=== PATIENT | female | born 1995 | race Caucasian/White ===

== ENCOUNTER → 2018-05-07 15:37 | Outpatient (CLI) | payer MEDICAID, SELFPAY ==
--- NOTE | 2018-05-07 15:43 | XR_ITS ---
XR foot LT min 3V HISTORY: Pain following injury ITS.REASON: LEFT FOOT SPRAIN ORDERING PHYSICIAN: Maral Aguilar MD PATIENT AGE: 23 years COMPARISON: None FINDINGS: No fracture or dislocation. No lytic or blastic change. There is normal mineralization.. The joint spaces are well-preserved. No significant degenerative/arthritic changes. No erosive changes evident. IMPRESSION: Negative, no acute finding
--- NOTE | 2018-05-07 15:43 | XR_ITS ---
XR ankle LT min 3V HISTORY: Pain following injury ITS.REASON: LEFT FOOT SPRAIN ORDERING PHYSICIAN: Maral Aguilar MD PATIENT AGE: 23 years Comparison: None FINDINGS: No fracture or dislocation. No lytic or blastic change. There is normal mineralization.. The joint spaces are well-preserved. No significant degenerative/arthritic changes. No erosive changes evident. IMPRESSION: Negative ankle, no acute finding
== END ==
PROVIDERS: PCP Family Medicine; Visit Provider Family Medicine
DX: S93.602A Unspecified sprain of left foot, initial encounter (principal)
CPT/HCPCS: 73610; 73630

== ENCOUNTER → 2018-11-07 15:11 | Outpatient (CLI) | payer MEDICAID, SELFPAY ==
--- NOTE | 2018-11-07 15:14 | US_ITS ---
US soft tissue head and neck CLINICAL INDICATION: ITS.REASON: LEFT CERVICAL LYMPHADENOPATHY ORDERING PHYSICIAN: Kolby Bardales MD PATIENT AGE: 23 years Comparison: None FINDINGS: Ultrasound is performed of the neck. No mass abnormal fluid collection or enlarged lymph nodes evident. IMPRESSION: Unremarkable neck ultrasound. Consider CT with contrast if symptoms persist
== END ==
PROVIDERS: PCP Family Medicine; Visit Provider Family Medicine
DX: R59.0 Localized enlarged lymph nodes (principal)
CPT/HCPCS: 76536

== ENCOUNTER → 2018-12-13 09:12 | Outpatient (CLI) | payer MEDICAID, SELFPAY ==
--- NOTE | 2018-12-13 09:13 | US_ITS ---
PROCEDURE: US ABDOMEN LIMITED CLINICAL INDICATION: ABD PAIN, DIAHHREA, VOMITING COMPARISON: No exams were available for comparison FINDINGS: PANCREAS: Unremarkable. No obvious mass or abnormal fluid collection. No ductal dilatation LIVER: There is increased echogenicity of the liver consistent with fatty liver. No focal liver lesions or biliary dilatation evident. RIGHT KIDNEY: Unremarkable. Normal size and echogenicity. No hydronephrosis GALLBLADDER: No gallstones, gallbladder wall thickening, pericholecystic fluid, or biliary dilatation. IMPRESSION: Fatty liver otherwise negative Dictated by: Konrad Strickland MD 12/13/2018 13:08 Signed by: <Electronically signed by Konrad Strickland MD in [place]> 12/13/2018 13:08
== END ==
PROVIDERS: PCP Family Medicine; Visit Provider Family Medicine
DX: R10.84 Generalized abdominal pain (principal); R19.7 Diarrhea, unspecified; R11.10 Vomiting, unspecified
CPT/HCPCS: 76705

== ENCOUNTER → 2019-01-20 09:01 | Outpatient (CLI) | payer MEDICAID, SELFPAY ==
--- NOTE | 2019-01-20 10:18 | HMH.ITSHM ---
Current Home Medications as stated by this patient Shelly Silva or applications sales representative. []GABAPENTIN GEODON LEMECTIL BUSPURONE EFFEXOR BINZITROPINE TRAZODONE
--- NOTE | 2019-01-20 10:30 | NM_ITS ---
PROCEDURE: NM HEPATOBILIARY W PHARM CLINICAL INDICATION: ABD PAIN, DIARRHEA,VOMITING COMPARISON: US ABDOMEN LIMITED from 12/13/2018 TECHNIQUE: DOSE: 8.56 mCi technetium Choletec. 2.1 mcg of CCK FINDINGS: Homogeneous activity is present within the hepatic parenchyma. Activity is present in the gallbladder by 10 minutes. Activity is present in the small bowel by 15 minutes. The gallbladder ejection fraction is calculated to be 91 percent. CCK-The patient did not report pain or other symptoms during CCK infusion. IMPRESSION: Unremarkable hepatobiliary scan with normal gallbladder ejection fraction Dictated by: Konrad Strickland MD 01/20/2019 20:45 Electronically signed by Konrad Strickland MD in [place] 01/20/2019 20:45
== END ==
PROVIDERS: PCP Family Medicine; Visit Provider Family Medicine
DX: R10.9 Unspecified abdominal pain (principal); R19.7 Diarrhea, unspecified; R11.10 Vomiting, unspecified
CPT/HCPCS: 78227; A9537; J2805

== ENCOUNTER → 2019-04-14 09:13 | Outpatient (POV) | payer OTHER, SELFPAY ==
[2019-04-14 11:27] LABS: Basophils % 0.3 % (0.1-2.0); Eosinophils % 0.1 % (0.1-12.0); Hematocrit 38.6 % (37.0-47.0); Hemoglobin 12.8 g/dL (12.2-16.2); Lymphocytes # 2.4 K/mm3 (0.7-4.5); Lymphocytes % 26.8 % (10-50); Mean Corpuscular HGB Conc 33.2 g/dL (31.8-35.4); Mean Corpuscular Volume 93.3 fl (81-99); Mean Platelet Volume 8.2 fl (7.4-10.4); Monocytes # 0.4 K/mm3 (0.1-1.0); Monocytes % 4.5 % (1.7-9.3); Neutrophils # 6.2 K/mm3 (1.8-7.8); Neutrophils % 68.3 % (37.0-80.0); Platelet Count 275 K/mm3 (142-424); Red Blood Count 4.14 M/mm3 (4.20-5.40)
[2019-04-14 12:04] LABS: Erythrocyte Sedimentation Rate 40 mm/hr (0-20)
[2019-04-14 13:05] LABS: Alanine Aminotransferase 36 U/L (12-78); Albumin Level 3.7 gm/dL (3.4-5.0); Albumin/Globulin Ratio 1.1 (1.1-1.8); Alkaline Phosphatase 68 U/L (46-116); Anion Gap 16.5 mEq/L (5-15); Aspartate Amino Transferase 22 U/L (15-37); Bilirubin,Total 0.2 mg/dL (0.2-1.0); Blood Urea Nitrogen 8 mg/dL (7-18); C-Reactive Protein 1.5 mg/dL (0.0-0.9); Calcium 8.9 mg/dL (8.5-10.1); Carbon Dioxide 24 mmol/L (21.0-32.0); Chloride 105 mmol/L (98-107); Creatinine,Serum 0.86 mg/dL (0.55-1.02); Estimated Glomerular Filt Rate 80 ml/min (>60); GFR (African American) 97 ML/MIN (>60); Globulin 3.3 gm/dl (1.3-3.2); Glucose 107 mg/dL (74-106); Potassium 4.5 mmoL/L (3.5-5.1); Sodium 141 mmol/L (136-145); Thyroid Stimulating Hormone 1.44 uIU/ml (0.358-3.740)
[2019-04-15 16:46] LABS: Deamidated Gliadin Abs, IgA 28 units (0-19); Deamidated Gliadin Abs, IgG 4 units (0-19); Tissue Transglutaminase IgA Ab <2 U/mL (0-3); Tissue Transglutaminase IgG Ab 16 U/mL (0-5)
[2019-04-15 16:47] LABS: Endomysial IgA Antibody Negative (Negative)
[2019-04-16 13:18] LABS: Reticulin IgA Antibody Negative titer (Neg:<1:2.5)
[2019-04-17 20:56] LABS: Saccharomyces cerevisiae, IgA 21.1 Units (0.0-24.9); Saccharomyces cerevisiae, IgG 45.8 Units (0.0-24.9)
== END ==
PROVIDERS: Visit Provider Nurse Practitioner Family
DX: R14.0 Abdominal distension (gaseous) (principal); R19.4 Change in bowel habit; K59.00 Constipation, unspecified; R11.2 Nausea with vomiting, unspecified; R10.84 Generalized abdominal pain; R19.7 Diarrhea, unspecified
CPT/HCPCS: 36415; 80053; 83516; 84443; 85025; 85651; 86140; 86255; 86256; 86671

== ENCOUNTER → 2020-01-26 12:45 | Outpatient (CLI) | payer OTHER, SELFPAY ==
[2020-01-26 13:27] LABS: Basophils # 0.1 K/mm3 (0-0.2); Basophils % 0.5 % (0.1-2.0); Eosinophils # 0.3 K/mm3 (0.0-0.4); Eosinophils % 2.8 % (0.1-12.0); Hematocrit 42.4 % (37.0-47.0); Hemoglobin 13.4 g/dL (12.2-16.2); Lymphocytes # 3.2 K/mm3 (0.7-4.5); Lymphocytes % 27.4 % (10-50); Mean Corpuscular HGB Conc 31.6 g/dL (31.8-35.4); Mean Corpuscular Hemoglobin 30.4 pg (27.0-31.2); Mean Corpuscular Volume 96.3 fl (81-99); Monocytes # 0.5 K/mm3 (0.1-1.0); Monocytes % 4.4 % (1.7-9.3); Neutrophils # 7.6 K/mm3 (1.8-7.8); Platelet Count 301 K/mm3 (142-424); Red Cell Distribution Width 14.3 % (11.5-17.5); White Blood Count 11.7 K/mm3 (4.8-10.8)
[2020-01-26 13:35] LABS: Strep Scrn Group A (Rapid) Negative (Negative)
[2020-01-27 08:29] LABS: Covid-19 Nasal PCR Sendout Lex NOT DETECTED
== END ==
PROVIDERS: PCP Family Medicine; Visit Provider Family Medicine
DX: Z03.818 Encounter for observation for suspected exposure to other biological agents ruled out (principal)
CPT/HCPCS: 85025; 87275; 87276; 87430; U0004

== ENCOUNTER → 2021-12-21 06:44 | Outpatient (CLI) | payer OTHER, SELFPAY | PROVIDERS: PCP Family Medicine; Visit Provider Family Medicine | DX: R30.0 Dysuria (principal); B96.89 Other specified bacterial agents as the cause of diseases classified elsewhere | CPT/HCPCS: 87086; 87088 ==

== ENCOUNTER → 2022-05-29 15:40 | Outpatient (CLI) | payer OTHER, SELFPAY ==
[2022-05-29 19:32] LABS: Adenovirus,PCR Not Detected (NotDetected); Chlamydophila Pneumoniae, PCR Not Detected (NotDetected); Coronavirus 19, PCR Not Detected (NotDetected); Coronavirus 229E Not Detected (NotDetected); Coronavirus NL63 Not Detected (NotDetected); Coronavirus OC43 Not Detected (NotDetected); Coronovirus HKU1,PCR Not Detected (NotDetected); Human Metapneumovirus Not Detected (NotDetected); Influenza A, PCR Not Detected (NotDetected); Influenza AH1, 2009 Not Detected (NotDetected); Influenza AH1, PCR Not Detected (NotDetected); Influenza AH3,PCR Not Detected (NotDetected); Influenza B, PCR Not Detected (NotDetected); Mycoplasma Pneumoniae, PCR Not Detected (NotDetected); Parainfluenza 1, PCR Not Detected (NotDetected); Parainfluenza 2, PCR Not Detected (NotDetected); Parainfluenza 3, PCR Not Detected (NotDetected); Parainfluenza 4, PCR Not Detected (NotDetected); Respiratory Syncytial Virus Not Detected (NotDetected); Rhinovirus/Enterovirus Not Detected (NotDetected)
[2022-05-29 19:41] LABS: Basophils # 0.1 K/mm3 (0-0.2); Basophils % 1.3 % (0.1-2.0); Eosinophils # 0.2 K/mm3 (0.0-0.4); Eosinophils % 2.2 % (0.1-12.0); Hematocrit 42.7 % (37.0-47.0); Hemoglobin 13.8 g/dL (12.2-16.2); Lymphocytes # 3.2 K/mm3 (0.7-4.5); Lymphocytes % 30.4 % (10-50); Mean Corpuscular HGB Conc 32.3 g/dL (31.8-35.4); Mean Corpuscular Hemoglobin 28.6 pg (27.0-31.2); Mean Corpuscular Volume 88.5 fl (81-99); Monocytes # 0.5 K/mm3 (0.1-1.0); Monocytes % 4.6 % (1.7-9.3); Neutrophils # 6.4 K/mm3 (1.8-7.8); Neutrophils % 61.6 % (37.0-80.0); Platelet Count 304 K/mm3 (142-424); Red Blood Count 4.82 M/mm3 (4.20-5.40); Red Cell Distribution Width 14.4 % (11.5-17.5); White Blood Count 10.4 K/mm3 (4.8-10.8)
[2022-05-29 19:42] LABS: Chloride 110 mmol/L (98-107); Sodium 143 mmol/L (136-145)
[2022-05-29 19:43] LABS: Potassium 4.2 mmoL/L (3.5-5.1)
[2022-05-29 19:45] LABS: Alanine Aminotransferase 34 U/L (12-78); Alkaline Phosphatase 75 U/L (38-126); Aspartate Amino Transferase 35 U/L (14-36); Bilirubin,Total 0.3 mg/dl (0.2-1.3); Blood Urea Nitrogen 9 mg/dl (7-17); Estimated Glomerular Filt Rate 99 ml/min (>60); GFR (African American) 120 ML/MIN (>60)
[2022-05-29 19:46] LABS: Albumin Level 4.3 g/dl (3.5-5.0); Albumin/Globulin Ratio 1.3 (1.1-1.8); Anion Gap 13.2 mEq/L (5-15); Calcium 9.5 mg/dl (8.4-10.2); Carbon Dioxide 24 mmol/L (22.0-30.0); Globulin 3.2 g/dL (1.3-3.2); Glucose 136 mg/dl (74-100); Total Protein,Serum 7.5 g/dl (6.3-8.2)
[2022-05-29 21:34] LABS: Bordetella Pertussis Detected (NotDetected)
== END ==
PROVIDERS: PCP Nurse Practitioner; Visit Provider Nurse Practitioner
DX: J02.9 Acute pharyngitis, unspecified (principal); R76.8 Other specified abnormal immunological findings in serum
CPT/HCPCS: 80053; 85025; 87581; 87632; 87798; C9803; U0003; U0005

== ENCOUNTER → 2022-06-07 09:40 | Outpatient (CLI) | payer OTHER, SELFPAY ==
--- NOTE | 2022-06-07 09:41 | CT_ITS ---
FINAL REPORT TECHNIQUE: Thin section axial CT images with coronal and sagittal reformats were performed after the administration of IV contrast. This study was performed with techniques to keep radiation doses as low as reasonably achievable (ALARA). Individualized dose reduction techniques using automated exposure control or adjustment of mA and/or kV according to the patient''s size were employed. CLINICAL HISTORY: right sialadenitis vs lymphadenopathy COMPARISON: None FINDINGS: No significant cervical adenopathy or mass lesion is present . Salivary glands are normal. The parotid glands are unremarkable. Larynx is unremarkable. Thyroid gland is unremarkable. The paranasal sinuses are well aerated. There are few small scattered mediastinal lymph nodes. IMPRESSION: Nonspecific mild mediastinal adenopathy. Reviewed, Interpreted and Dictated by Donn Fischer MD Transcribed by Jillian Florian Authenticated and . [facility]
== END ==
PROVIDERS: PCP Nurse Practitioner; Visit Provider Nurse Practitioner
DX: K11.20 Sialoadenitis, unspecified (principal)
CPT/HCPCS: 70491; Q9967

== ENCOUNTER → 2022-06-19 23:39 | Outpatient (CLI) | payer OTHER, SELFPAY ==
[2022-06-19 19:09] LABS: Basophils # 0.1 K/mm3 (0-0.2); Basophils % 1.1 % (0.1-2.0); Eosinophils # 0.2 K/mm3 (0.0-0.4); Eosinophils % 1.8 % (0.1-12.0); Hematocrit 45.3 % (37.0-47.0); Hemoglobin 14.9 g/dL (12.2-16.2); Lymphocytes # 2.8 K/mm3 (0.7-4.5); Lymphocytes % 27.7 % (10-50); Mean Corpuscular HGB Conc 32.8 g/dL (31.8-35.4); Mean Corpuscular Hemoglobin 29.6 pg (27.0-31.2); Mean Corpuscular Volume 90.3 fl (81-99); Mean Platelet Volume 9.5 fl (7.4-10.4); Monocytes # 0.4 K/mm3 (0.1-1.0); Monocytes % 4.2 % (1.7-9.3); Neutrophils # 6.6 K/mm3 (1.8-7.8); Neutrophils % 65.2 % (37.0-80.0); Platelet Count 354 K/mm3 (142-424); Red Blood Count 5.02 M/mm3 (4.20-5.40); Red Cell Distribution Width 14.2 % (11.5-17.5); White Blood Count 10.1 K/mm3 (4.8-10.8)
== END ==
PROVIDERS: PCP Nurse Practitioner; Visit Provider Nurse Practitioner
DX: J06.9 Acute upper respiratory infection, unspecified (principal)
CPT/HCPCS: 85025

== ENCOUNTER → 2022-08-14 23:21 | Outpatient (CLI) | payer OTHER, SELFPAY ==
[2022-08-14 18:05] LABS: Adenovirus,PCR Not Detected (NotDetected); Bordetella Pertussis Not Detected (NotDetected); Chlamydophila Pneumoniae, PCR Not Detected (NotDetected); Coronavirus 19, PCR Not Detected (NotDetected); Coronavirus 229E Not Detected (NotDetected); Coronavirus NL63 Not Detected (NotDetected); Coronavirus OC43 Not Detected (NotDetected); Coronovirus HKU1,PCR Not Detected (NotDetected); Human Metapneumovirus Not Detected (NotDetected); Influenza A, PCR Not Detected (NotDetected); Influenza AH1, 2009 Not Detected (NotDetected); Influenza AH1, PCR Not Detected (NotDetected); Influenza AH3,PCR Not Detected (NotDetected); Influenza B, PCR Not Detected (NotDetected); Mycoplasma Pneumoniae, PCR Not Detected (NotDetected); Parainfluenza 1, PCR Not Detected (NotDetected); Parainfluenza 2, PCR Not Detected (NotDetected); Parainfluenza 3, PCR Not Detected (NotDetected); Parainfluenza 4, PCR Not Detected (NotDetected); Respiratory Syncytial Virus Not Detected (NotDetected); Rhinovirus/Enterovirus Not Detected (NotDetected)
[2022-08-14 18:15] LABS: Basophils # 0.1 K/mm3 (0-0.2); Basophils % 0.5 % (0.1-2.0); Eosinophils # 0.2 K/mm3 (0.0-0.4); Eosinophils % 1.8 % (0.1-12.0); Hematocrit 43.4 % (37.0-47.0); Hemoglobin 14.2 g/dL (12.2-16.2); Lymphocytes % 29.8 % (10-50); Mean Corpuscular HGB Conc 32.6 g/dL (31.8-35.4); Mean Corpuscular Hemoglobin 28.8 pg (27.0-31.2); Mean Corpuscular Volume 88.5 fl (81-99); Mean Platelet Volume 9.7 fl (7.4-10.4); Monocytes # 0.4 K/mm3 (0.1-1.0); Monocytes % 4.1 % (1.7-9.3); Neutrophils # 6.3 K/mm3 (1.8-7.8); Neutrophils % 63.8 % (37.0-80.0); Platelet Count 251 K/mm3 (142-424); Red Blood Count 4.91 M/mm3 (4.20-5.40); Red Cell Distribution Width 13.8 % (11.5-17.5); White Blood Count 9.9 K/mm3 (4.8-10.8)
== END ==
PROVIDERS: PCP Nurse Practitioner; Visit Provider Nurse Practitioner
DX: J06.9 Acute upper respiratory infection, unspecified (principal); J02.9 Acute pharyngitis, unspecified
CPT/HCPCS: 85025; 87070; 87581; 87632; 87798; C9803; U0003; U0005

== ENCOUNTER → 2022-09-28 09:10 | Outpatient (POV) | payer OTHER, SELFPAY | PROVIDERS: Visit Provider Specialist/Technologist | DX: Z00.00 Encounter for general adult medical examination without abnormal findings (principal) ==

== ENCOUNTER → 2023-03-28 08:40 | Outpatient (CLI) | payer OTHER, SELFPAY | PROVIDERS: PCP Nurse Practitioner; Visit Provider Nurse Practitioner | DX: N10 Acute pyelonephritis (principal) | CPT/HCPCS: 87086 ==

== ENCOUNTER 2023-06-12 19:57 | Outpatient (CLI) | payer OTHER, SELFPAY ==
[2023-06-12 18:14] LABS: Coronavirus 19, PCR Not Detected (NotDetected); Influenza A, PCR Not Detected (NotDetected); Influenza B, PCR Not Detected (NotDetected)
== END 2023-06-12 23:59 ==
LOC: LAB.DROPOF 19:57
PROVIDERS: PCP Nurse Practitioner; Visit Provider Nurse Practitioner
DX: R51.9 Headache, unspecified (principal); H92.09 Otalgia, unspecified ear; R09.82 Postnasal drip; J06.9 Acute upper respiratory infection, unspecified; R05.9 Cough, unspecified
CPT/HCPCS: 87636

== ENCOUNTER 2023-08-06 23:02 | Outpatient (CLI) | payer OTHER, SELFPAY ==
[2023-08-06 18:14] LABS: Basophils # 0.1 K/mm3 (0-0.2); Basophils % 0.8 % (0.1-2.0); Eosinophils # 0.2 K/mm3 (0.0-0.4); Eosinophils % 2.6 % (0.1-12.0); Hematocrit 44.8 % (37.0-47.0); Hemoglobin 14.3 g/dL (12.2-16.2); Lymphocytes # 2.3 K/mm3 (0.7-4.5); Mean Corpuscular HGB Conc 31.8 g/dL (31.8-35.4); Mean Corpuscular Hemoglobin 29.4 pg (27.0-31.2); Mean Corpuscular Volume 92.5 fl (81-99); Mean Platelet Volume 9.8 fl (7.4-10.4); Monocytes # 0.4 K/mm3 (0.1-1.0); Monocytes % 4.8 % (1.7-9.3); Neutrophils # 5.6 K/mm3 (1.8-7.8); Neutrophils % 64.7 % (37.0-80.0); Platelet Count 258 K/mm3 (142-424); Red Blood Count 4.84 M/mm3 (4.20-5.40); Red Cell Distribution Width 14.8 % (11.5-17.5); White Blood Count 8.7 K/mm3 (4.8-10.8)
[2023-08-06 18:45] LABS: Alanine Aminotransferase 41 U/L (12-78); Albumin/Globulin Ratio 1.4 (1.1-1.8); Alkaline Phosphatase 75 U/L (38-126); Anion Gap 12.1 mEq/L (5-15); Aspartate Amino Transferase 41 U/L (14-36); Bilirubin,Total 0.5 mg/dl (0.2-1.3); Blood Urea Nitrogen 10 mg/dl (7-17); Calcium 9.4 mg/dl (8.4-10.2); Carbon Dioxide 22 mmol/L (22.0-30.0); Chloride 110 mmol/L (98-107); Estimated Glomerular Filt Rate 98 ml/min (>60); GFR (African American) 119 ML/MIN (>60); Globulin 2.9 g/dL (1.3-3.2); Glucose 189 mg/dl (74-100); Potassium 4.1 mmoL/L (3.5-5.1); Sodium 140 mmol/L (136-145); Total Protein,Serum 6.9 g/dl (6.3-8.2)
[2023-08-06 19:06] LABS: Creatinine,Urine Random 88 mg/dL (Not Estab.)
[2023-08-06 19:14] LABS: Microalbumin/Creatinine Ratio 41.1
[2023-08-06 19:17] LABS: Thyroid Stimulating Hormone 0.29 uIU/mL (0.465-4.68)
[2023-08-06 19:36] LABS: Vitamin B12 716 pg/mL (239-931)
[2023-08-06 19:51] LABS: Hemoglobin A1C 6.7 % (4.0-6.0)
== END 2023-08-06 23:59 | disposition home or self-care (01) ==
LOC: LAB.DROPOF 23:02
PROVIDERS: PCP Nurse Practitioner; Visit Provider Nurse Practitioner
DX: R73.01 Impaired fasting glucose (principal); E66.9 Obesity, unspecified; Z68.38 Body mass index [BMI] 38.0-38.9, adult; Z79.899 Other long term (current) drug therapy
CPT/HCPCS: 80053; 82043; 82306; 82570; 82607; 83036; 84443; 85025

== ENCOUNTER 2023-08-13 10:51 | Outpatient (CLI) | payer OTHER, SELFPAY ==
[2023-08-13 19:18] LABS: Cholesterol 133 mg/dl (140-200); HDL Cholesterol 45 mg/dl (40-60); Triglycerides 89 mg/dl (30-150); VLDL Cholesterol 18 mg/dL (0-40)
[2023-08-13 19:25] LABS: T4 (Thyroxine) 11.4 ug/dl (5.53-11.0)
[2023-08-13 19:28] LABS: Direct LDL Cholesterol 66.36 mg/dL (100-129)
[2023-08-13 19:39] LABS: Thyroid Stimulating Hormone 1.63 uIU/mL (0.465-4.68)
[2023-08-15 05:49] LABS: Free Thyroxine Index 3.6 ug/dL (5.93-13.13); Triiodothryronine (T3) Uptake 32 % (23.5-40.5)
== END 2023-08-13 23:59 | disposition home or self-care (01) ==
LOC: LAB.DROPOF 08-14 10:51
PROVIDERS: PCP Nurse Practitioner; Visit Provider Nurse Practitioner
DX: E04.1 Nontoxic single thyroid nodule (principal); R79.89 Other specified abnormal findings of blood chemistry; Z13.220 Encounter for screening for lipoid disorders
CPT/HCPCS: 80061; 84436; 84443; 84479

== ENCOUNTER 2023-08-27 12:53 | Outpatient (CLI) | payer OTHER, SELFPAY ==
--- NOTE | 2023-08-27 12:54 | US_ITS ---
FINAL REPORT CLINICAL HISTORY: thyroid nodule COMPARISON: None FINDINGS: THYROID ULTRASOUND: The right lobe of the thyroid measures 4.6 x 1.8 x 1.6 cm in size. There is a single nodule noted in the right lobe of the thyroid which is mixed cystic and solid, measures up to 5 mm in size. The solid component is isoechoic, a TI-RADS category 3 nodule. No other nodules are present in the right lobe of the thyroid. The left lobe of the thyroid measures 3.7 x 1.7 x 1.4 cm in size. No focal mass or nodule is present. The isthmus of the thyroid measures 2 cm in thickness. IMPRESSION: Single nodule in the right lobe, mixed cystic and solid, measures up to 5 mm in size, a TI-RADS category 3 nodule. This nodule is highly likely to be benign. According to TI-RADS criteria, no follow-up is required at this time. Reviewed, Interpreted and Dictated by Maral Mckay MD Transcribed by Bhavani Lerma Authenticated and [facility]
== END 2023-08-27 23:59 | disposition home or self-care (01) ==
LOC: RAD 12:54
PROVIDERS: PCP Nurse Practitioner; Visit Provider Nurse Practitioner
DX: E04.1 Nontoxic single thyroid nodule (principal)
CPT/HCPCS: 76536

== ENCOUNTER 2023-09-10 13:42 | Outpatient (CLI) | payer OTHER, SELFPAY ==
[2023-09-10 14:36] LABS: Occult Blood,Stool Negative (Negative)
[2023-09-10 15:10] LABS: C-Reactive Protein 9.1 mg/L (0-4)
[2023-09-17 15:06] LABS: Pancreatic Elastase, Fecal >500 (>200)
[2023-09-17 17:01] LABS: Calprotectin, Fecal 58 ug/g (0-120)
== END 2023-09-10 23:59 | disposition home or self-care (01) ==
LOC: LAB 13:43
PROVIDERS: PCP Nurse Practitioner; Visit Provider Nurse Practitioner
DX: K50.90 Crohn's disease, unspecified, without complications (principal); R19.7 Diarrhea, unspecified; R79.82 Elevated C-reactive protein (CRP)
CPT/HCPCS: 36415; 82272; 82656; 83993; 86140; G0328

== ENCOUNTER 2023-11-28 10:51 | Day surgery (SDC) | payer OTHER, SELFPAY ==
[2023-11-26 10:50] VITALS: BMI 39.4
[2023-11-28] MEDS: LACTATED RINGERS 1000ML 1,000 ML 25 ML IV (11:33)
[2023-11-28 11:38] VITALS: BP 132/83; PULSE 75; RESP 18; TEMP 36.1; O2SAT 95
[2023-11-28 11:47] LABS: POC Glucose,Bedside 115 (70-110)
[2023-11-28 12:02] LABS: Urine Pregnancy, HCG Qual. Negative (Negative)
--- NOTE | 2023-11-28 12:11 | P.PNANES_ITS ---
[facility] Disclaimer: The information contained in this section may have been updated after the patient was seen, as this information can be updated by other users. Medical History Chronic post-traumatic stress disorder (PTSD) Type 2 diabetes mellitus without complications Low TSH level Thyroid nodule Obesity IFG (impaired fasting glucose) Celiac disease Hearing Loss Hypertension PCOS (polycystic ovarian syndrome) Tobacco abuse disorder Severe dysmenorrhea Schizoaffective disorder Surgical History History of laparoscopy Family History Other Cancer Diabetes Hyperlipidemia Hypertension Stroke Substance abuse Social History Smoking Status: Current every day smoker tobacco type: cigarettes alcohol intake: never substance use type: denies use current occupational status: disabled Travel in the last 8 weeks: None number of children: 0 [facility] Anesthesia Checklist Patient Identification Patient Identification: Arm Band Structural Data Admitted From: Home Planned Operative Procedure/s: EGD/Colonoscopy Consent for Planned Operative Procedure(s) Verified: Yes Verified Documents: Surgical Consent and History and Physical NPO Status Verified Time NPO: 00:00 Additional verifications Anesthesia Reactions: No Airway Assessment Mallampati Score:: Class II C-Spine Mobility Assessed: Yes TMJ Mobility Assessed: Yes Dentition: Good Dentition Neurological Assessment Level of Consciousness: Awake, Alert and Appropriate Anesthesia Plan Anesthesia Risk discussed: Yes Anesthesia Plan: Verified ASA Class: III Anesthesia Type: MAC
[2023-11-28 13:47] VITALS: O2SAT 95
[2023-11-28 14:15] VITALS: BP 102/71; PULSE 79; RESP 16; TEMP 36.7; O2SAT 95
--- NOTE | 2023-11-28 14:15 | HMH.SCOPE ---
Procedure: Date: 11/28/23 Patient Date of :: 1995 Procedure Performed:: EGD Indications:: The patient is a 28-year-old who presents for EGD evaluation of abdominal bloating and diarrhea. The patient has a past medical history of celiac disease. Performing Provider:: Russell Monsivais MD Referring Provider:: Stacey Dee APRN Sedation:: See RN records Procedure:: The gastroscope was gently passed through the incisoral orifice into the oral cavity and under direct visualization the esophagus was intubated. The endoscope was passed down the esophagus, through the stomach, and into the duodenum. Color, texture, mucosa, and anatomy of the esophagus, stomach, and duodenum were carefully examined with the scope. Findings:: The esophagus appeared normal. The Z-line was irregular. There was a small hiatal hernia. There was inflammation in the stomach characterized by erythema and congestion biopsies were obtained with a cold forceps for histology. The examined duodenum appeared normal. Biopsies were obtained for celiac disease. Impression: Regular Z-line Small hiatal hernia Gastritis Recommendations:: Await pathology results Recommend a strict gluten-free diet Follow-up referring provider as previously Complications:: None Estimated blood obtained (mL): 0 Colonoscopy Component Colonoscopy Component Was a colonoscopy performed during today's procedure?: No
--- NOTE | 2023-11-28 14:17 | HMH.SCOPE ---
Procedure: Date: 11/28/23 Patient Date of :: 1995 Procedure Performed:: Colonoscopy Indications:: The patient is a 28-year-old who presents for colonoscopy evaluation of diarrhea and abdominal bloating. The patient has a history of celiac disease Performing Provider:: Russell Monsivais MD Referring Provider:: Stacey Dee APRN Sedation:: See RN record Procedure:: After placing the patient in the left lateral decubitus position, the colonoscopy was gently inserted into the rectum and under direct visualization advanced to the cecum which was identified by transillumination in the right lower quadrant, identification of the ileocecal valve, appendiceal orifice, and cecal strap. Color, texture, mucosa, and anatomy of the colon were carefully examined with the scope. Findings:: The quality of the bowel preparation was good. The entire examined colon appeared normal. Biopsies were obtained throughout the colon to evaluate for microcytic colitis with patient's history of celiac disease. The examined terminal ileum appeared normal. There were small internal hemorrhoids seen on retroflexion view of the rectum. Impression: Normal-appearing colon Normal-appearing examined terminal ileum Recommendations:: Await pathology result Follow-up referring provider as previously scheduled Complications:: None Estimated blood obtained (mL): 0 Colonoscopy Component Colonoscopy Component Was a colonoscopy performed during today's procedure?: Yes Recommended follow up colonoscopy of at least 10 years?: No If no, follow up colonoscopy recommended in ___ years?: Diagnostic colonoscopy Reason for not recommending >/= 10 yr follow-up interval?: Diagnostic colonoscopy
[2023-11-28 14:25] VITALS: BP 122/72; PULSE 75; RESP 16; O2SAT 97
[2023-11-28 14:35] VITALS: BP 127/76; PULSE 77; RESP 16; O2SAT 99
[2023-11-28 14:46] VITALS: BP 120/68; PULSE 76; RESP 16; O2SAT 99
== END 2023-11-28 14:49 | disposition home or self-care (01) ==
LOC: OUTP 10:52
PROVIDERS: PCP Nurse Practitioner; Visit Provider Internal Medicine
PROC: 0DJ08ZZ Inspection of Upper Intestinal Tract, Via Natural or Artificial Opening Endoscopic (ICD-10-PCS; CPT 43235; principal; 2023-11-28 13:00)
DX: R14.0 Abdominal distension (gaseous) (principal); R10.13 Epigastric pain; R19.7 Diarrhea, unspecified; K90.0 Celiac disease; K44.9 Diaphragmatic hernia without obstruction or gangrene; K29.70 Gastritis, unspecified, without bleeding
CPT/HCPCS: 43239; 45380; 81025; 82962; J7120

== ENCOUNTER 2024-04-29 12:50 | Outpatient (CLI) | payer OTHER, SELFPAY ==
[2024-04-29 19:07] LABS: Coronavirus 19, PCR Not Detected (NotDetected); Human Rhinovirus Not Detected (NotDetected); Influenza A, PCR Not Detected (NotDetected); Influenza B, PCR Not Detected (NotDetected); Respiratory Syncytial Virus Not Detected (NotDetected)
== END 2024-04-29 23:59 | disposition home or self-care (01) ==
LOC: LAB.DROPOF 05-01 12:51
PROVIDERS: PCP Nurse Practitioner; Visit Provider Nurse Practitioner
DX: J06.9 Acute upper respiratory infection, unspecified (principal); F17.210 Nicotine dependence, cigarettes, uncomplicated
CPT/HCPCS: 87631